=== PATIENT | male | born 1975 | race Caucasian/White ===

== ENCOUNTER 2018-05-08 21:36 | Inpatient (IN) | payer SELFPAY ==
[~2018-05-08] VITALS: Ht 182.9 cm; Wt 75.0 kg
[2018-05-08] MEDS ORDERED: SODIUM CHLORIDE 0.9% 1000ML 1,000 ML IV STA (22:03)
[2018-05-08] MEDS ORDERED: HYDROMORPHONE 1MG/1ML INJ IV STA (22:03)
[2018-05-08] MEDS ORDERED: KETOROLAC TROMETHAMINE 30 MG/ML VIAL IV ONE (22:15)
[2018-05-08] MEDS ORDERED: ONDANSETRON HCL INJ 2 MG/ML VIAL IV ONE (22:15)
[2018-05-08] MEDS ORDERED: HYDROMORPHONE 2MG/ML 2 MG/ML ML IV ONE (22:15)
[2018-05-08 22:24] LABS: BASOPHILS % 0.1 % (0.0-1.0); HEMATOCRIT 43.4 % (38.2-49.6); HEMOGLOBIN 15.5 g/dL (14.0-18.0); LYMPHOCYTES # (AUTO) 0.8 (1.0-3.2); LYMPHOCYTES % 5.3 % (18.0-39.1); MEAN CORPUSCULAR HGB CONC 35.7 g/dL (31-35); MEAN CORPUSCULAR VOLUME 89.5 fL (81-99); MONOCYTES # (AUTO) 0.8 (0.2-0.8); MONOCYTES % 4.9 % (4.4-11.3); NEUTROPHILS # (AUTO) 13.6 (2.1-6.9); NEUTROPHILS % 89.3 % (38.7-80.0); PLATELET COUNT 284 x10e3/uL (140-360); RED BLOOD COUNT 4.85 x10e6/uL (4.3-5.7); RED CELL DISTRIBUTION WIDTH 11.4 % (11.7-14.4)
[2018-05-08 22:30] LABS: INR 0.88; PROTHROMBIN TIME 12.8 seconds (11.9-14.5)
[2018-05-08 22:31] LABS: PARTIAL THROMBOPLASTIN TIME 29.6 seconds (23.8-35.5)
[2018-05-08 22:35] LABS: CLARITY,URINE HAZY (CLEAR); COLOR,URINE YELLOW (YELLOW); LEUKOCYTE ESTERASE ,URINE NEGATIVE (NEGATIVE); NITRITE,URINE NEGATIVE (NEGATIVE); PROTEIN,URINE DIPSTICK TRACE (NEGATIVE)
[2018-05-08 22:36] LABS: BILIRUBIN,URINE NEGATIVE (NEGATIVE); KETONES,URINE TRACE (NEGATIVE); URINE UROBILINOGEN 0.2 mg/dL (0.2 - 1)
[2018-05-08 22:40] LABS: ALBUMIN 4.6 g/dL (3.5-5.0); ALBUMIN/GLOBULIN RATIO 1.4 (0.8-2.0); AMORPHOUS SEDIMENT,URINE FEW (FEW); ANION GAP 17.3 mmol/L (8-16); BACTERIA,URINE FEW /HPF; CALCIUM 10.1 mg/dL (8.4-10.2); CREATININE, SERUM 1.64 mg/dL (0.72-1.25); EPITHELIAL CELLS,URINE FEW /LPF; MAGNESIUM 1.5 MG/DL (1.3-2.1); MUCUS,URINE FEW (RARE); POTASSIUM 4.3 mmol/L (3.5-5.1); RBC,URINE >50 /HPF (0-5); WBC,URINE (MAN) 0-5 /HPF (0-5)
--- NOTE | 2018-05-08 23:28 | Diagnostic Imaging Report ---
EXAM: CT ABDOMEN AND PELVIS without IV CONTRAST INDICATION: Status post ESWL today, right lower quadrant and flank pain COMPARISON: None TECHNIQUE: The abdomen and pelvis were scanned using a multidetector helical scanner. Coronal and sagittal reformations were obtained. Dose modulation, iterative reconstruction, and/or weight based adjustment of the mA/kV was utilized to reduce the radiation dose to as low as reasonably achievable. Renal stone protocol performed. IV Contrast: None Oral Contrast: None CTDIvol has been reviewed. It is below the limits set by the Radiation Protocol Committee (RPC). FINDINGS: LOWER THORAX: No consolidations LIVER: No masses BILIARY: Normal gallbladder. No ductal dilation. SPLEEN: No masses PANCREAS: No masses ADRENALS: No nodules RIGHT KIDNEY: Conglomerate of stones in the renal pelvis up to 1.2 cm. A stone measuring 0.5 cm is in the inferior pole. Multiple stacked stones measuring approximately 2 cm in length and 0.5 cm in width are in the distal ureter proximal to and at the ureterovesicular junction. This is resulting in moderate hydroureteronephrosis. Small amount of fluid around the right kidney. LEFT KIDNEY: There are at least 6 very small stones throughout the left kidney. The largest is in the inferior pole measuring 3 mm. No hydroureteronephrosis or ureteral stones. GI TRACT: No wall thickening or obstruction. Normal appendix. VESSELS: Normal PERITONEUM/RETROPERITONEUM: No free air or fluid LYMPH NODES: No lymphadenopathy REPRODUCTIVE ORGANS: The prostate measures 5.2 cm in transverse diameter. BLADDER: Normal SOFT TISSUES: Normal BONES: No suspicious bone lesions. IMPRESSION: Moderate right hydroureteronephrosis secondary to multiple stacked stones in the distal right ureter just proximal to and at the ureterovesicular junction. Bilateral nephrolithiasis. Signed by: Dr. Cheryl Nolasco M.D. on 05/08/2018 11:24 PM
[2018-05-09] MEDS ORDERED: SODIUM CHLORIDE 0.9% 1000ML 1,000 ML IV SCH (00:42)
[2018-05-09] MEDS ORDERED: ONDANSETRON HCL INJ 2 MG/ML VIAL IV PRN (00:45)
[2018-05-09] MEDS ORDERED: HYDROMORPHONE 2MG/ML 2 MG/ML ML IV PRN (00:45)
--- OUTSIDE RECORDS SUMMARY | 2018-05-09 00:52 | XMS REPORT ---
Author Author [facility] Address Unknown Phone Unavailable Care Team Providers Care Vegetable Scullion Name Role Phone Maranda DOUGLASS Unavailable Unavailable Problems This patient has no known problems. Allergies, Adverse Reactions, Alerts This patient has no known allergies or adverse reactions. Medications This patient has no known medications. Results Test Description Test Time Test Comments Text Results Atomic Results Result Comments CT ABDOMEN/PELVIS WO 2018-05-08 23:16:00 [place] [address] Patient Name: SONA MEJIAS MR #: [id number] : 1975 Age/Sex: 42/M Req #: [id number] Adm Physician: Ordered by: MIGUEL DOUGLASS MD Report #: [id number] Location: ER Room/Bed: Procedure: [id number] CT/CT ABDOMEN/PELVIS WO Exam Date: Exam Time: REPORT STATUS: Signed EXAM: CT ABDOMEN AND PELVIS without IV CONTRAST INDICATION: Status post ESWL today, right lower quadrant and flank pain COMPARISON: None TECHNIQUE: The abdomen and pelvis were scanned using a multidetector helical scanner. Coronal and sagittal reformations were obtained. Dose modulation, iterative reconstruction, and/or weight based adjustment of the mA/kV was utilized to reduce the radiation dose to as low as reasonably achievable. Renal stone protocol performed. IV Contrast: None Oral Contrast: None CTDIvol has been reviewed. It is below the limits set by the Radiation Protocol Committee (RPC). FINDINGS: LOWER THORAX: No consolidations LIVER: No masses BILIARY: Normal gallbladder. No ductal dilation. SPLEEN: No masses PANCREAS: No masses ADRENALS: No nodules RIGHT KIDNEY: Conglomerate of stones in the renal pelvis up to 1.2 cm. A stone measuring 0.5 cm is in the inferior pole. Multiple stacked stones measuring approximately 2 cm in length and 0.5 cm in width are in the distal ureter proximal to and at the ureterovesicular junction. This is resulting in moderate hydroureteronephrosis. Small amount of fluid around the right kidney. LEFT KIDNEY: There are at least 6 very small stones throughout the left kidney. The largest is in the inferior pole measuring 3 mm. No hydroureteronephrosis or ureteral stones. GI TRACT: No wall thickening or obstruction. Normal appendix. VESSELS: Normal PERITONEUM/RETROPERITONEUM: No free air or fluid LYMPH NODES: No lymphadenopathy REPRODUCTIVE ORGANS: The prostate measures 5.2 cm in transverse diameter. BLADDER: Normal SOFT TISSUES: Normal BONES: No suspicious bone lesions. IMPRESSION: Moderate right hydroureteronephrosis secondary to multiple stacked stones in the distal right ureter just proximal to and at the ureterovesicular junction. Bilateral nephrolithiasis. Signed by: Dr. Hali Wheatley M.D. on 05/08/2018 11:24 PM Dictated By: HALI WHEATLEY MD [id number] Transcribed By: LEA on 05/08/188 COPY TO: MIGUEL DOUGLASS MD
[2018-05-09] MEDS ORDERED: CEFTRIAXONE SOD 1 GM/NS 50 ML 50 ML IV SCH (01:00)
[2018-05-09 01:56] VITALS: BP 134/73
[2018-05-09] MEDS ORDERED: TYLENOL WITH C1 EACH PO (02:23)
[2018-05-09 02:28] VITALS: BP 134/73
[2018-05-09 02:31] VITALS: BP 134/73
[2018-05-09 04:00] VITALS: BP 122/59
--- NOTE | 2018-05-09 07:10 | NUR ---
PT STATES HE WANTS TO LEAVE AMA, [employer] DUENAS [employer] AT BEDSIDE AWARE OF PT LEAVING AMA, AMA PAPER SIGNED, PT LEFT WITH ALL BELONGS DENIES ANY PAIN OR DISCOMFORT. Addendum: 05/09/18 at 0812 by Marline Gonzalez RN PT INFORMED OF ALL RISK INVOLVED WITH LEAVING AMA.
[2018-05-09] MEDS ORDERED: HYDRALAZINE HCL 20 MG/ML VIAL IV PRN (07:30)
[2018-05-09] MEDS ORDERED: ACETAMINOPHEN 325 MG TAB PO PRN (07:30)
[2018-05-09] MEDS ORDERED: FAMOTIDINE 20 MG/2 ML VIAL IV SCH (09:00)
--- NOTE | 2018-05-10 05:11 | Discharge Summary ---
ADMISSION DIAGNOSES 1. Moderate right hydroureteronephrosis. 2. Acute kidney injury versus chronic kidney disease. 3. Hyponatremia. 4. Leukocytosis. 5. Hematuria. 6. Tachycardia. DISCHARGE DIAGNOSES 1. Moderate right hydroureteronephrosis. 2. Acute kidney injury versus chronic kidney disease. 3. Hyponatremia. 4. Leukocytosis. 5. Hematuria. 6. Tachycardia. HISTORY: Patient denies medical history. SURGICAL HISTORY: [place] teeth extraction x4, tonsillectomy. FAMILY HISTORY: Noncontributory. SOCIAL HISTORY: Patient admits to occasional alcohol use. He denies illicit drug use and tobacco use. HOSPITAL COURSE: This 42-year-old male complains of sharp constant right lower quadrant abdominal pain and right lower back pain, status post lithotripsy prior to hospitalization. The pain started about 2 hours after the procedure. The patient says he noticed dysuria, hematuria, and sediment in his urine with the first urine after the procedure. He now denies abdominal pain, dysuria, hematuria, fever, nausea, and vomiting. He wants to go against medical advice since he feels better. He will not even wait to speak to urology. On admission, patient had a CT of the abdomen that showed moderate right hydroureteronephrosis secondary to multiple stack stones in the distal right ureteral just proximal to and at the ureterovesical junction. Vital signs were stable. Patient got IV fluids overnight as well as a dose of Rocephin. Patient was running sinus rhythm to sinus tachycardia, low 110s. I ordered UA, urine culture and blood cultures, but the patient left AMA prior to completion of any of those. I instructed the patient of the risks of going against medical advice, he understands and accepts responsibility. He says he will follow up with urology next week some time. Dictated by: Sheron Vail NP Job#: [id number] ARGELIA
== END 2018-05-09 08:11 | disposition left against medical advice (07) | DRG 694 ==
LOC: ER 21:41 → ERHOLD 05-09 00:48 → MED/SURG 05-09 01:56
PROVIDERS: ADMIT Internal Medicine; ATTEND Internal Medicine
DX: N13.2 Hydronephrosis with renal and ureteral calculous obstruction (principal); E87.1 Hypo-osmolality and hyponatremia; N17.9 Acute kidney failure, unspecified; N18.9 Chronic kidney disease, unspecified; D72.829 Elevated white blood cell count, unspecified; R00.0 Tachycardia, unspecified; Z28.21 Immunization not carried out because of patient refusal; Z98.890 Other specified postprocedural states
CPT/HCPCS: 36415; 74176; 80053; 81001; 83735; 85025; 85610; 85730; 87086; 99284; J0696; J1885; J2405; J7030